=== PATIENT | male | born 2005 | race African-American/Black ===

== ENCOUNTER 2024-04-04 13:34 | Emergency (ER) | payer MEDICAID ==
[~2024-04-04] VITALS: Ht 193 cm; Wt 82.0 kg
[2024-04-04 13:37] VITALS: TEMP 98.3; O2SAT 100
[2024-04-04] MEDS ORDERED: BO1 TP (14:42)
[2024-04-04] MEDS ORDERED: NAPR220C61 MT (14:42)
[2024-04-04] MEDS: TETANUS, DIPHTHERIA, PERTUSSIS VAC/PF 0.5ML (>10YR OLD) IM ONE (14:50)
[2024-04-04 14:51] VITALS: BP 115/55; PULSE 50; RESP 16
[2024-04-04] MEDS: BACITRACIN ZINC OINT UDPKT TOP ONE (14:51)
[2024-04-04] MEDS: IBUPROFEN 600MG TABLET PO ONE (14:51)
== END 2024-04-04 14:55 | disposition home or self-care (01) ==
LOC: ER 13:34
DX: S40.011A Contusion of right shoulder, initial encounter (principal); S50.311A Abrasion of right elbow, initial encounter; Z91.018 Allergy to other foods; W13.8XXA Fall from, out of or through other building or structure, initial encounter; Y93.89 Activity, other specified; Y92.89 Other specified places as the place of occurrence of the external cause; Y99.8 Other external cause status
CPT/HCPCS: 73030; 73080; 90471; 90715; 99284